=== PATIENT | female | born 1940 | race Caucasian/White ===

== ENCOUNTER 2017-06-15 05:26 | Day surgery (SDC) | payer OTHER ==
[~2017-06-15] VITALS: Ht 157.5 cm; Wt 98.9 kg
[~2017-06-15 05:26] MED LIST: AMLODIPINE BESYL5 MG PO; CITALOPRAM HBR20 MG PO; CYANOCOBALAM1000 MCG PO; EC-NAPROSYN375 MG PO; EFFEXOR50 MG PO; FLEXERIL10 MG PO; KEFLEX500 MG PO; LOVASTATIN10 MG PO; METOPROLOL SUCC50 MG PO; NAPROSYN500 MG PO; NEXIUM40 MG PO; OS-CAL 500+D T1 EAC1 PO; TRAMADOL HCL50 MG PO; VITAMIN B-6100 MG PO; VITAMIN D5000 UNIT PO
[2017-06-15 06:11] VITALS: BP 133/67
[2017-06-15 09:24] VITALS: BP 132/69
[2017-06-15 09:56] VITALS: BP 130/68
== END 2017-06-15 10:00 | disposition home or self-care (01) ==
LOC: SDC 05:26
DX: N84.0 Polyp of corpus uteri (principal); K21.9 Gastro-esophageal reflux disease without esophagitis; E78.00 Pure hypercholesterolemia, unspecified; I10 Essential (primary) hypertension; F41.9 Anxiety disorder, unspecified; Z87.891 Personal history of nicotine dependence; Z88.0 Allergy status to penicillin
CPT/HCPCS: 88305; J1100; J1885; J3010